=== PATIENT | female | born 1970 | race Caucasian/White ===

== ENCOUNTER 2016-06-28 16:42 | Emergency (ER) | payer MEDICARE ==
[~2016-06-28] VITALS: Ht 162.6 cm; Wt 55.0 kg
[2016-06-28 16:42] VITALS: Ht 162.6 cm; Wt 55.0 kg
[~2016-06-28 16:42] MED LIST: AMIT50TA3 PO; ASPI81TA2 PO; FERR-67 PO; LAMO100T12 PO; LEVE500T26 PO; LORA10TA7 PO
--- NOTE | 2016-06-28 16:42 | NUR ---
ROOM PATIENT ARRIVES TO ROOM VIA EMS CART
--- OUTSIDE RECORDS SUMMARY | 2016-06-28 16:47 | XMS REPORT | Continuity of Care Document ---
Author Author [facility] Organization [facility] Address Unknown Phone Unavailable Care Team Providers Care Bead Wire Insulator Name Role Phone OkyeniJustin davila Primary Care Physician [phone] Source Comments Some departments are not documenting in the electronic medical record. If you do not see the information that you expected, contact Release of Information in the Health Information Management department at [phone] for further assistance in locating additional records.[facility] Active Allergies and Adverse Reactions Allergen Noted Date Severity Reactions Comments Amitriptyline 12/29/2010 RASH Amoxicillin 07/26/2003 Medium Allergy recorded in SMS: Amoxicillin~Reactions: HIVES Current Medications Prescription Sig. Disp. Refills Start End Date Status Date Sumatriptan-Naproxen Take by mouth. Take 1 10 Tab 3 12/08/19 Active (TREXIMET) 85-500 mg PO tablet at start of 11 Tab migraine; if no relief, take 2nd tablet in 2 hours. Max of 2 tablets/24 hrs and 10 tablets/month hydrOXYzine (ATARAX) 50 Take 1 Tab by mouth at 30 Tab 5 12/28/19 Active mg PO tablet bedtime as needed 11 (Insomnia or anxiety). ibuprofen (MOTRIN) 200 mg Take 400 mg by mouth Active PO tablet twice daily as needed. buPROPion SR Take 1 Tab by mouth twice 60 Tab 2 12/30/19 Active (WELLBUTRIN-SR) 150 mg PO daily. 11 tablet Psyllium Husk (METAMUCIL) Take 1 Cap by mouth Active 0.52 g Cap daily. omeprazole (PRILOSEC) 10 Take 10 mg by mouth Active mg capsule daily. ASPIRIN/ACETAMINOPHEN/CAF Take 1 Tab by mouth every Active FEINE (EXCEDRIN MIGRAINE Mo, We & Fr as needed. PO) Active Problems Problem Noted Date Osteopenia 01/22/2011 Overview: DE XA bone scan 11/2010 shows osteopenia; rec another scan in 2 years: Risk factors: Premature ovarian failure, smoker Current T-score AP Spine L1-L3 -1.8 Hip Neck LT -1.3 Hip Neck RT -1.2 Hip Total Mean -1.2 A bone density should be repeated in 2 years since the risk for fracture is moderate and the DEXA is abnormal and DEXA trend is unknown FRAX* Score for this patient is: Major Osteoporotic Fracture Risk in next 10 years: 2.2 % Hip Fracture Risk in next 10 years: 0.2 % Treatment Guidelines: National Osteoporosis Foundation The guidelines published by the National Osteoporosis Foundation recommend: Assure patient is getting adequate calcium 1200-1500mg and vitamin D 400-800 and is getting weight bearing exercise. L ast Assessment & Plan: 1. Patient to take 1500ca/800 vit d per day 2. Walk 30 minutes per day 3. Stop smoking 4. Repeat DEXA scan in 2 years Smoking 01/03/2011 Overview: Has tried nicotine patches and nicotine gum without success prior to 2010 L ast Assessment & Plan: 1. Patient has been able to cut down to 2-3 cigarettes per day on 1/2 dose of bupropion per day Rash 12/16/2010 Last Assessment & Plan: - rash along chin that developed same time Elavil started, also with dry mouth and chest discomfort - will take her off Elavil - continue Treximet for now - appointment with Dr. 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 Will call patient with DEXA scan results when they are in Chronic migraine without aura 12/12/2010 Overview: 11/2010 >15 headache days per month with Treximet rescue medication; patient cannot tolerate amitriptyline due to side effects 12/30/09 CT w/o contrast: FINDINGS: There is no acute intracranial hemorrhage. There is no midline shift or mass effect. The basal cisterns are patent. There are no extra-axial fluid collections. The ventricles and sulci are within normal limits for age. The patton-white interfaces are maintained. The visualized portions of the perinasal sinuses and mastoid air cells are clear. No calvarial lesions are identified. Impression: CT HEAD W/O CONTRASTIMPRESSION: UNREMARKABLE NONCONTRAST CT OF THE HEAD. L ast Assessment & Plan: 1. Continue current regimen as patient has tried and failed amitriptyline and cannot tolerate propanolol due to blood pressures Elevated liver function tests 12/12/2010 Overview: Periodic mild elevation of liver function tests; 12/2010 wnl --> 25/28/119; most likely related to tylenol use for headaches 09/2010 --> 43/75/144 03/24/2010 --> 23/28/110 (after patient told to stop taking tylenol) 03/05/2010 --> 97/161/150 Negative for hep c in 2003 L ast Assessment & Plan: 1. Recheck in 3 months (03/2011); check tylenol and ETOH level if elevated 2. Will check complete hepatitis panel at next office visit Healthcare maintenance 12/10/2010 Overview: Pap smear: Patient with cryotherapy in 2003; pap smear result leading to cryotherapy not on file; stenotic cervix 2009 pap smear normal (no transformation zone)/ 2010 pap smear normal (with transformation zone) 2010 g/c, chl negative 12/2010 219/262/43/124; No CHD; 2 RF (smoking and post-menop); Frsc=2%; LDL goal <130; statin if > 160 11/2010 Dexa scan shows osteopenia Last Assessment & Plan: 1. Discussed TLC for management of LDL and triglycerides 2. Recheck in 3 months; will recommend fish oil if triglycerides remain elevated. Abdominal pain 09/12/2010 Overview: Patient with chronic RLQ pain upon deep penetration and on bimanual exam since 2003 Normal uterus and adnexa on 09/10/10 CT Diarrhea in adult patient 09/12/2010 Overview: 09/10/10 CT abd/pelvis NO EVIDENCE OF APPENDICITIS. SUGGESTION OF MILD MURAL THICKENING OF THE COLON WITH MUCOSAL ENHANCEMENT. THIS MAY BE DUE TO NONDISTENTION OF THE COLON, HOWEVER, MILD INFECTIOUS OR INFLAMMATORY COLITIS MAY HAVE THIS APPEARANCE. CORRELATION WITH SYMPTOMS AND LAB WORKUP IS RECOMMENDED. Last Assessment & Plan: 1. Will postpone colonoscopy at this time unless patient has another episode of diarrhea/acute abdominal pain (patient pref) Resolved Problems Problem Noted Date Resolved Date Headache(784.0) 12/10/2010 12/12/2010 Overview: 12/30/09 CT w/o contrast: FINDINGS: There is no acute intracranial hemorrhage. There is no midline shift or mass effect. The basal cisterns are patent. There are no extra-axial fluid collections. The ventricles and sulci are within normal limits for age. The patton-white interfaces are maintained. The visualized portions of the perinasal sinuses and mastoid air cells are clear. No calvarial lesions are identified. Impression: CT HEAD W/O CONTRASTIMPRESSION: UNREMARKABLE NONCONTRAST CT OF THE HEAD. Immunizations Name Dates Previously Given Next Due FLU VACCINE >3YO 02/03/2011 Social History Tobacco Use Types Packs/Day Years Used Date Current Every Day Smoker Cigarettes 0.1 22 Smokeless Tobacco: Never Used Alcohol Use Drinks/Week oz/Week Comments No Quit drinking after seeing a relative of complications of alcoholism/liver disease. Last Filed Vital Signs Vital Sign Reading Time Taken Blood Pressure 100/76 02/03/2011 1:28 PM CDT Pulse 98 02/03/2011 1:28 PM CDT Temperature 36.6 C (97.9 F) 02/03/2011 1:28 PM CDT Respiratory Rate 20 02/03/2011 1:28 PM CDT Height 1.575 m (5' 2") 02/03/2011 1:28 PM CDT Weight 60.328 kg (133 lb) 02/03/2011 1:28 PM CDT Body Mass Index 24.32 02/03/2011 1:28 PM CDT Oxygen Saturation 97% 09/06/2008 3:58 AM CDT Plan of Care Health Maintenance Due Date Last Done Comments Pertussis Vaccine 1982 Tetanus Vaccine 01/03/1988 Breast Cancer Screening 2011 Physical (Comprehensive) 12/14/2011 12/13/2010 Exam Cervical Cancer Screening 12/13/2013 12/13/2010, 12/07/2010 Influenza Vaccine 12/02/2016 02/03/2011 Results from Last 3 Months Not on file
--- OUTSIDE RECORDS SUMMARY | 2016-06-28 16:47 | XMS REPORT | Referral Summary ---
Author Author [facility] Organization [facility] Address Unknown Phone Unavailable Care Team Providers Care Ict Security Specialist Name Role Phone David Abdi Primary Care Physician [phone] Encounter VC Date(s): 04/08/16 - 04/08/16 [facility] [address] [place] [id number] Discharge Disposition: 01-Home or Self Care Attending Physician: Esperanza Abdi DO Admitting Physician: Esperanza Abdi DO Vital Signs Most recent to 1 oldest [Reference Range]: Temperature Tympanic 36.7 degC [36.6-38.1 degC] (04/08/16 10:01 AM) Peripheral Pulse 84 bpm Rate [60-100 bpm] (04/08/16 10:01 AM) Blood Pressure 100/70 mmHg [90-140/60-90 mmHg] (04/08/16 10:01 AM) SpO2 98 % (04/08/16 10:01 AM) Problem List No data available for this section Allergies, Adverse Reactions, Alerts Substance Reaction Severity Status No Known Allergies Active Medications amitriptyline 50 mg oral tablet 50 mg 1 tabs, Oral, Bedtime (once a day), # 90 tabs, 0 Refill(s), Pharmacy: [facility], 1 tabs Oral Bedtime (once a day) Start Date: 04/08/16 Status: Ordered aspirin 81 mg oral tablet 81 mg 1 tabs, Oral, Daily, # 30 tabs, 0 Refill(s) Start Date: 04/08/16 Status: Ordered Feosol 325 mg (65 mg elemental iron) oral tablet 325 mg 1 tabs, Oral, Daily, 0 Refill(s) Start Date: 04/08/16 Status: Ordered lamoTRIgine 100 mg oral tablet See Instructions, tabs one half tab Oral BID, 0 Refill(s) Start Date: 04/08/16 Status: Ordered levETIRAcetam 500 mg oral tablet 500 mg 1 tabs, Oral, Daily, 0 Refill(s) Start Date: 04/08/16 Status: Ordered loratadine 10 mg oral tablet 10 mg 1 tabs, Oral, Daily, # 30 tabs, 0 Refill(s) Start Date: 04/08/16 Status: Ordered Results No data available for this section Immunizations No data available for this section Procedures No data available for this section Social History Social History Type Response Smoking Status Current every day smoker; Type: Cigarettes; Tobacco use per day: Between 1/4 pack and 1/2 pack; Date Last Use: 5-7 a day Assessment and Plan No data available for this section
--- OUTSIDE RECORDS SUMMARY | 2016-06-28 16:47 | XMS REPORT | Continuity of Care Document ---
Author Author [facility] Organization [facility] Address Unknown Phone Unavailable Support Name Relationship Address Phone AKUA WHITE MD Caregiver [address] [place] [address] [place] [address] SEAN SALAZAR Next Of Kin [address] [place] [address] Insurance Providers Payer Name Policy Number Subscriber Name [facility] [id number] [place], [place] 18 Self Problems Medical Problems Problem Onset Date Status UTI (urinary tract infection) Unknown Active Medications Medication Dose Route Sig Days/Qty Instructions Order Date Discontinued Date Status Amitriptyline HCl 1 Tab PO DAILY 04/20/14 Active [Imitrex] 04/20/14 Active Ciprofloxacin 500 Mg PO EVERY 12 HOURS 7 Days 04/20/14 Active Phenazopyridine HCl 200 Mg PO THREE TIMES A DAY 2 Days Take 1 tab, by mouth, 3 times a day AFTER meals. 04/20/14 Active Social History Social History Problem Response Recorded Date/Time Hx Alcohol Use No 04/20/2014 3:30pm Query Response Start Date Stop Date Smoking Status Current every day smoker Hospital Discharge Instructions No hospital discharge instructions. Plan of Care No plan of care. Functional Status Query Response Date Recorded Physical Hygiene Self April 20, 2014 3:30pm Disabilities Visual April 20, 2014 3:30pm Devices Used Glasses April 20, 2014 3:30pm Dressing Self April 20, 2014 3:30pm Ambulation Self April 20, 2014 3:30pm Diet Self April 20, 2014 3:30pm Mental Status Alert April 20, 2014 4:44pm Disabilities Visual April 20, 2014 3:30pm Devices Used Glasses April 20, 2014 3:30pm Physical Hygiene Self April 20, 2014 3:30pm Dressing Self April 20, 2014 3:30pm Ambulation Self April 20, 2014 3:30pm Diet Self April 20, 2014 3:30pm Allergies, Adverse Reactions, Alerts Allergen Type Severity Reaction Status Last Updated Penicillin Allergy Unknown Active 04/20/14 Immunizations Name Given Type Hx Influenza Vaccination Y JAN 22, 2014 Historical Hx Influenza Vaccination Y JAN 22, 2014 Historical Vital Signs Acute Vital Signs Vital Response Date/Time Temperature (Fahrenheit) 98.1 deg F (96.8 - 99.1) Temperature (Calculated Celsius) 36.94276 degrees C (36.0 - 37.3) Pulse Rate (adult) 94 bpm (60 - 100) Respiratory Rate 16 breaths/min (10 - 20) O2 Sat by Pulse Oximetry 96 % (90 - 100) Blood Pressure 124/82 mm Hg Height 5 ft 3 in Weight 119 lb Body Mass Index 21.0 kg/m^2 Results Test Source Date Result Interp. Ref. Range Comments Urine Bacteria April 20, 2014 3:45pm 2+ H - Has specimen been collected/obtained? Y Urine Bilirubin April 20, 2014 3:45pm Negative - Has specimen been collected/obtained? Y Urine Blood April 20, 2014 3:45pm Negative - Has specimen been collected/obtained? Y Urine Collection Type April 20, 2014 3:45pm Voided-not cc-midstr - Has specimen been collected/obtained? Y Urine Color April 20, 2014 3:45pm Yellow - Has specimen been collected/obtained? Y Urine Culture Indicated April 20, 2014 3:45pm Cult reflexed &setup - Has specimen been collected/obtained? Y Urine Glucose (UA) April 20, 2014 3:45pm Negative - Has specimen been collected/obtained? Y Urine Ketones April 20, 2014 3:45pm Negative - Has specimen been collected/obtained? Y Urine Leukocyte Esterase April 20, 2014 3:45pm Trace H - Has specimen been collected/obtained? Y Urine Nitrite April 20, 2014 3:45pm Positive H - Has specimen been collected/obtained? Y Urine Protein April 20, 2014 3:45pm Negative - Has specimen been collected/obtained? Y Urine RBC April 20, 2014 3:45pm 0-1 /HPF - Has specimen been collected/obtained? Y Urine Specific [place] April 20, 2014 3:45pm >=1.030 H - Has specimen been collected/obtained? Y Urine Squamous Epithelial Cells April 20, 2014 3:45pm >50 - Has specimen been collected/obtained? Y Urine Turbidity April 20, 2014 3:45pm Sl cloudy - Has specimen been collected/obtained? Y Urine Urobilinogen April 20, 2014 3:45pm 0.2 EU/DL - Has specimen been collected/obtained? Y Urine WBC April 20, 2014 3:45pm 5-10 /HPF H - Has specimen been collected/obtained? Y Urine pH April 20, 2014 3:45pm 5.5 - Has specimen been collected/ obtained? Y Procedures No known history of procedures. Encounters Encounter Location Date/Time Departed Emergency Room [facility] 04/20/14 3:21pm Recent Diagnosis
--- OUTSIDE RECORDS SUMMARY | 2016-06-28 16:47 | XMS REPORT | Continuity of Care Document ---
Author Author [facility] Organization [facility] Address Unknown Phone Unavailable Care Team Providers Care Slime Plant Operator Name Role Phone SILVESTRE CYR MD Primary Care Physician [phone] Insurance Providers Guarantor DianaGloria saldivar Address [address] [place] [address] Email DENIED 04-21-16 Payer [employer] Policy Number [id number] Subscriber's Name Gloria Bishop Relationship 19 Self Advance Directives Directive Response Recorded Date/Time Advanced Directives Type None 04/21/16 3:20pm Chief Complaint and Reason for Visit Chief Complaint Nausea,Vomiting,Diarrhea Reason for Visit Gastroenteritis Cholelithiasis Problems Active Problems Medical Problem Onset Date Status Migraine Unknown Acute UTI (urinary tract infection) Unknown Acute Past Problems Medical Problem Onset Date Cholelithiasis Unknown Gastroenteritis Unknown Headache Unknown Headache Unknown Seizure Unknown Medications Current Home Medications Medication Dose Units Route Directions Days Qty Instructions Start Date Amitriptyline Hcl 50 Mg Tablet 50 Mg Oral Bedtime 04/21/16 Aspirin 81 Mg Tab.chew 81 Mg Oral Daily 09/16/15 Ferrous Sulfate (Iron Supplement) 325 Mg Tablet 325 Mg Oral Bedtime 08/01/15 Lamotrigine 100 Mg Tablet 100 Mg Oral Bedtime 04/21/16 Levetiracetam 500 Mg Tablet 500 Mg Oral Daily 04/21/16 Loratadine 10 Mg Tablet 10 Mg Oral Bedtime 08/01/15 Past Home Medications Medication Directions Ordered Status Ciprofloxacin (Cipro) 500 Mg/5 Ml Funmilayo.mc.rec, 500 Mg Oral Every 12 Hours Discontinued Phenazopyridine Hcl (Pyridium) 200 Mg Tablet, 200 Mg Oral Three Times A Day 04/20/14 Discontinued Social History Social History Problem Response Recorded Date/Time Onset Date Status Hx Substance Use No 04/21/2016 3:20pm Not Applicable Not Applicable Hx Alcohol Use No 04/21/2016 3:20pm Not Applicable Not Applicable Tobacco Usage none 08/01/2015 3:22pm Not Applicable Not Applicable Query Response Start Date Stop Date Smoking Status Current every day smoker Hospital Discharge Instructions No hospital discharge instructions. Plan of Care Discharge Date 04/21/16 7:44pm Disposition 01 DISCHARGED HOME, SELF-CARE Condition at Discharge Improved Instructions/Education Provided DI for Gallstones DI for Viral Gastroenteritis -- Adult Prescriptions See Medication Section Referrals [facility] Address: [address] [place] [address] [phone] Note: Additional Instructions/Education 1. Follow up with your primary doctor if symptoms persist. 2. Follow up with your doctor for further evaluation if necessary for gallstones. Care Plan and Goals Physician Care Plan Problem: Gastroenteritis Goal: Follow up with primary care provider Instructions: Take medications and follow care plan as discussed/written Functional Status No functional status results. Allergies, Adverse Reactions, Alerts Allergen Type Severity Reaction Status Last Updated Penicillin Allergy Unknown Active 04/21/16 Immunizations Query Response on File Recorded Date/Time Hx Influenza Vaccination Y JAN 22, 2014 04/20/14 3:30pm Hx Influenza Vaccination Y JAN 22, 2014 04/20/14 3:30pm Influenza Vaccine Hx 2015 04/21/16 3:20pm Vital Signs Acute Vital Signs Vital Response Date/Time Temperature (Fahrenheit) 98.3 deg F (96.8 - 99.1) 04/21/2016 7:44pm Temperature (Calculated Celsius) 36.95767 degrees C (36.0 - 37.3) 04/21/2016 7:44pm Pulse Rate (adult) 78 bpm (60 - 100) 04/21/2016 7:44pm Respiratory Rate 18 breaths/min (10 - 20) 04/21/2016 7:44pm O2 Sat by Pulse Oximetry 98 % (90 - 100) 04/21/2016 7:44pm Blood Pressure 122/76 mm Hg 04/21/2016 7:44pm Height (Feet) 5 feet 04/21/2016 3:20pm Height (Inches) 5.00 inches 04/21/2016 3:20pm Weight (Kilograms) 55.400 kg 04/21/2016 3:20pm Body Mass Index (BMI) 20.0 04/21/2016 3:20pm Results Laboratory Results Test Name Result Units Flags Reference Collection Date/Time Result Date/ Time Comments Urine Collection Type CLEANCATCH-MIDSTREAM 01/26/2016 2:33pm 2015 2:46pm Lamotrigine (Lamictal) Level 1.3 mcg/mL L 01/26/2016 2:33pm 2015 4:21pm Reference Range: 2.5 - 15.0 ADDITIONAL INFORMATION This test was developed and its performance characteristics determined by [facility] in a manner consistent with CLIA requirements. This test has not been cleared or approved by the U.S. Food and Drug Administration. Test Performed by: [place] [address] Hydroelectric Plant Mechanical Engineer: Eris Suero II, M.D., Ph.D. Lamotrigine performed at [facility], [address] [place] [address] Hydroelectric Plant Mechanical Engineer Nimo Savage MD White Blood Count 6.0 T/MM3 4.5-11.0 04/21/2016 5:09pm 04/21/2016 5: 16pm Red Blood Count 4.50 M/MM3 4.00-5.20 04/21/2016 5:09pm 04/21/2016 5: 16pm Hemoglobin 13.8 GM/DL 12-16 04/21/2016 5:09pm 04/21/2016 5:16pm Hematocrit 41.3 % 36-46 04/21/2016 5:09pm 04/21/2016 5:16pm Mean Corpuscular Volume 91.8 UM3 80-100 04/21/2016 5:09pm 04/21/2016 5: 16pm Mean Corpuscular Hemoglobin 30.7 UUG 26-34 04/21/2016 5:09pm 2016 5:16pm Mean Corpuscular Hemoglobin Concent 33.4 GM/DL 31-37 04/21/2016 5:0904/21/2016 5:16pm RDW Standard Deviation 44.6 FL 36.9-50.2 04/21/2016 5:0904/21/2016 5 :16pm Platelet Count 156 T/MM3 130-400 04/21/2016 5:0904/21/2016 5:16pm Mean Platelet Volume 11.2 UM3 9.4-12.4 04/21/2016 5:0904/21/2016 5: 16pm Neutrophils (%) (Auto) 44.8 % 33-66 04/21/2016 5:0904/21/2016 5: 16pm Lymphocytes (%) (Auto) 46.5 % H 23-45 04/21/2016 5:0904/21/2016 5: 16pm Monocytes (%) (Auto) 5.5 % 0-9.0 04/21/2016 5:04/21/2016 5:16pm Eosinophils (%) (Auto) 2.5 % 0-4 04/21/2016 5:0904/21/2016 5:16pm Basophils (%) (Auto) 0.7 % 0-2 04/21/2016 5:0904/21/2016 5:16pm Immature Granulocyte % (Auto) 0.0 % 0.0-0.5 04/21/2016 5:092016 5:16pm Absolute Neutrophils (auto) 2.7 T/MM3 1.8-7.7 04/21/2016 5:092016 5:16pm Absolute Lymphocytes (auto) 2.8 T/MM3 1-4.8 04/21/2016 5:2016 5:16pm Absolute Monocytes (auto) 0.3 T/MM3 0-0.8 04/21/2016 5:0904/21/2016 5:16pm Absolute Eosinophils (auto) 0.2 T/MM3 0-0.5 04/21/2016 5:2016 5:16pm Absolute Basophils (auto) 0.0 T/MM3 0-0.2 04/21/2016 5:09pm 04/21/2016 5:16pm Absolute Immature Granulocyte (auto 0.00 T/MM3 0.00-0.03 04/21/2016 5: 0904/21/2016 5:16pm Icterus Index < 2 0-7 04/21/2016 5:09pm 04/21/2016 5:35pm Chemistry Specimen Hemolysis < 15 0-25 04/21/2016 5:09pm 04/21/2016 5 :35pm 0-25: Specimen Exhibited No Hemolysis. Turbidity < 20 0-20 04/21/2016 5:09pm 04/21/2016 5:35pm Sodium Level 144 MEQ/L 134-144 04/21/2016 5:09pm 04/21/2016 5:35pm Potassium Level 4.2 MEQ/L 3.6-5 04/21/2016 5:09pm 04/21/2016 5:35pm Chloride Level 107 MEQ/L 98-107 04/21/2016 5:09pm 04/21/2016 5:35pm Carbon Dioxide Level 25 MEQ/L 22-30 04/21/2016 5:09pm 04/21/2016 5: 35pm Anion Gap 12 MEQ/L 5-15 04/21/2016 5:09pm 04/21/2016 5:35pm Blood Urea Nitrogen 21.0 MG/DL H 7-17 04/21/2016 5:09pm 04/21/2016 5: 35pm Creatinine 0.9 MG/DL 0.7-1.2 04/21/2016 5:09pm 04/21/2016 5:35pm BUN/Creatinine Ratio 23 RATIO 6-26 04/21/2016 5:09pm 04/21/2016 5:35pm Glomerular Filtration Rate Calc 68 04/21/2016 5:09pm 04/21/2016 5: 35pm Glucose Level 99 MG/DL 65-110 04/21/2016 5:0904/21/2016 5:35pm Calculated Osmolality 280 MOSM/KG 261-280 04/21/2016 5:09pm 04/21/2016 5:35pm Calcium Level 9.3 MG/DL 8.4-10.2 04/21/2016 5:09pm 04/21/2016 5:35pm Total Bilirubin 0.30 MG/DL 0.20-1.30 04/21/2016 5:09pm 04/21/2016 5: 35pm Alkaline Phosphatase 108 U/L 38-126 04/21/2016 5:09pm 04/21/2016 5: 35pm Total Protein 7.2 G/DL 6.3-8.2 04/21/2016 5:09pm 04/21/2016 5:35pm Albumin 4.3 G/DL 3.5-5.0 04/21/2016 5:09pm 04/21/2016 5:35pm Globulin 2.9 G/DL 2.4-3.6 04/21/2016 5:09pm 04/21/2016 5:35pm Albumin/Globulin Ratio 1.5 RATIO 1.1-2.2 04/21/2016 5:09pm 04/21/2016 5 :35pm Aspartate Amino Transf (AST/SGOT) 23 U/L 14-36 04/21/2016 5:09pm 2016 5:35pm Alanine Aminotransferase (ALT/SGPT) 32 U/L 9-52 04/21/2016 5:09pm 04/21 5:35pm Urine Color YELLOW YELLOW 04/21/2016 5:29pm 04/21/2016 5:41pm Urine Turbidity CLEAR CLEAR 04/21/2016 5:29pm 04/21/2016 5:41pm Urine Specific [place] 1.020 1.015-1.025 04/21/2016 5:29pm 2016 5:41pm Urine pH 6.0 5.0-8.0 04/21/2016 5:29pm 04/21/2016 5:41pm Urine Leukocyte Esterase NEGATIVE NEGATIVE 04/21/2016 5:29pm 2016 5:41pm Urine Nitrite NEGATIVE NEGATIVE 04/21/2016 5:pm 04/21/2016 5:41pm Urine Protein NEGATIVE NEGATIVE 04/21/2016 5:pm 04/21/2016 5:41pm Urine Glucose (UA) NEGATIVE NEGATIVE 04/21/2016 5:29pm 04/21/2016 5: 41pm Urine Ketones NEGATIVE NEGATIVE 04/21/2016 5:29pm 04/21/2016 5:41pm Urine Urobilinogen 1.0 EU/DL NORMAL 04/21/2016 5:29pm 04/21/2016 5: 41pm Urine Bilirubin NEGATIVE NEGATIVE 04/21/2016 5:29pm 04/21/2016 5: 41pm Urine Blood NEGATIVE NEGATIVE 04/21/2016 5:29pm 04/21/2016 5:41pm Urinalysis Comment MICROSCOPIC NOT IND. 04/21/2016 5:29pm 2016 5:41pm Procedures Procedure Status Date Provider(s) Routine venipuncture Completed 01/26/16 Ct head/brain w/o dye Completed 01/26/16 Comprehen metabolic panel Completed 01/26/16 Drug screen favian lamotrigine Completed 01/26/16 Urinalysis auto w/o scope Completed 01/26/16 Urine test Completed 01/26/16 Complete cbc w/auto diff wbc Completed 01/26/16 Emergency dept visit Completed 01/26/16 DRUG TESTS, PRESUMPTIVE, ANY NUMBER OF PROCEDURES Completed 01/26/16 Encounters Encounter Location Arrival/Admit Date Discharge/Depart Date Attending Provider Departed Emergency Room [facility] 04/21/16 3:06pm 04/21/16 7: 44pm EDITH ARIZA MD Departed Emergency Room [facility] 01/26/16 1:27pm 01/26/16 4: 10pm ASHER PEREZ DO Recent Diagnosis
--- OUTSIDE RECORDS SUMMARY | 2016-06-28 16:47 | XMS REPORT | Continuity of Care Document ---
Author Author [facility] Address Unknown Phone Unavailable Allergies Medications Problems Procedures Results Encounters ACCT No. Visit Date/Time Discharge Status Pt. Type Provider Facility Loc./Unit Complaint [id number] 02/03/2016 13:41:58 02/03/2016 13:41:59 DIS Outpatient [id number] 02/03/2016 13:41:56 02/03/2016 13:41:57 DIS Outpatient [id number] 02/03/2016 13:41:54 02/03/2016 13:41:54 DIS Outpatient [id number] 02/03/2016 13:24:41 02/03/2016 13:24:42 DIS Outpatient [id number] 02/03/2016 13:24:34 02/03/2016 13:24:35 DIS Outpatient [id number] 04/20/2016 11:07:40 DIS Outpatient [id number] 04/20/2016 11:07:01 DIS Outpatient [id number] 04/20/2016 11:03:22 DIS Outpatient
--- OUTSIDE RECORDS SUMMARY | 2016-06-28 16:48 | XMS REPORT | Referral Summary ---
Author Author [facility] Organization [facility] Address Unknown Phone Unavailable Care Team Providers Care Pusher Operator Name Role Phone David Abdi Primary Care Physician [phone] Encounter VC Date(s): 05/24/16 - 05/24/16 [facility], Family [address] [place] [address] Discharge Disposition: 01-Home or Self Care Attending Physician: Esteban Lombardo APRN Admitting Physician: Esteban Lombardo APRN Vital Signs Most recent to 1 oldest [Reference Range]: Temperature Tympanic 36.8 degC [36.6-38.1 degC] (05/24/16 2:51 PM) Peripheral Pulse 88 bpm Rate [60-100 bpm] (05/24/16 2:51 PM) Respiratory Rate 16 br/min [14-20 br/min] (05/24/16 2:51 PM) Blood Pressure 100/70 mmHg [90-140/60-90 mmHg] (05/24/16 2:51 PM) SpO2 98 % (05/24/16 2:51 PM) Problem List Condition Effective Dates Status Health Status Informant Chronic Active migraine(Confirmed) Seizure Active disorder(Confirmed) Allergies, Adverse Reactions, Alerts Substance Reaction Severity Status No Known Allergies Active penicillin1 Active 1Hives in childhood Medications amitriptyline 50 mg oral tablet 50 mg 1 tabs, Oral, Bedtime (once a day), # 90 tabs, 0 Refill(s), Pharmacy: [facility], 1 tabs Oral Bedtime (once a day) Start Date: 04/08/16 Status: Ordered aspirin 81 mg oral tablet 81 mg 1 tabs, Oral, Daily, # 30 tabs, 0 Refill(s) Start Date: 04/08/16 Status: Ordered Bactrim DS 800 mg-160 mg oral tablet 1 tabs, Oral, BID, X 7 days, # 14 tabs, 0 Refill(s), Pharmacy: [facility] #[id number] Start Date: 05/24/16 Stop Date: 05/31/16 Status: Ordered Feosol 325 mg (65 mg elemental iron) oral tablet 325 mg 1 tabs, Oral, Daily, 0 Refill(s) Start Date: 04/08/16 Status: Ordered Flonase 50 mcg/inh nasal spray 1 sprays, Nasal, BID, # 16 g, 0 Refill(s) Start Date: 05/06/16 Status: Ordered LaMICtal 25 mg oral tablet 25 mg 1 tabs, Oral, Daily, # 30 tabs, 1 Refill(s), Pharmacy: [facility] # [id number], 1 tabs Oral Daily Start Date: 05/18/16 Status: Ordered levETIRAcetam 500 mg oral tablet 500 mg 1 tabs, Oral, BID, # 30 tabs, 0 Refill(s), other reason (Rx) Start Date: 05/06/16 Status: Ordered loratadine 10 mg oral tablet 10 mg 1 tabs, Oral, Daily, # 30 tabs, 0 Refill(s) Start Date: 04/08/16 Status: Ordered polyethylene glycol 3350 oral powder for reconstitution 17 g, Oral, Daily, Constipation, dissolve in water before taking, # 255 g, 0 Refill(s) Start Date: 05/06/16 Status: Ordered Results Urinalysis Most recent to 1 oldest [Reference Range]: UA Color Dk Yellow (05/24/16 2:48 PM) UA Appear Sl Cloudy (05/24/16 2:48 PM) UA pH [5.0-8.0] 5.5 (05/24/16 2:48 PM) UA Leuk Est Negative [Negative] (05/24/16 2:48 PM) UA Nitrite Negative [Negative] (05/24/16 2:48 PM) UA Protein Trace [Negative] *ABN* (05/24/16 2:48 PM) UA Glucose Negative [Negative] (05/24/16 2:48 PM) UA Ketones Negative [Negative] (05/24/16 2:48 PM) UA Urobilinogen 0.2 mg/dL [<=1.0 mg/dL] (05/24/16 2:48 PM) UA Bili [Negative] Negative (05/24/16 2:48 PM) UA Blood [Negative] Negative (05/24/16 2:48 PM) UA Spec Grav >=1.030 [1.003-1.030] (05/24/16 2:48 PM) Type Cl Catch (05/24/16 2:48 PM) Immunizations No data available for this section Procedures Procedure Date Related Diagnosis Body Site following previous delivery Social History Social History Type Response Smoking Status Current every day smoker; Type: Cigarettes; Tobacco use per day: Between 1/4 pack and 1/2 pack; Date Last Use: 5-7 a day Assessment and Plan No data available for this section
--- OUTSIDE RECORDS SUMMARY | 2016-06-28 16:49 | XMS REPORT | Referral Summary ---
Author Author [facility] Organization [facility] Address Unknown Phone Unavailable Care Team Providers Care Visitor Information Assistant Name Role Phone David Abdi Primary Care Physician [phone] Encounter Date(s): 04/22/16 - 04/22/16 [facility], Family [address] [place] [address]- Discharge Diagnosis: Seizure disorder Discharge Diagnosis: Polypharmacy Discharge Diagnosis: Diarrhea Discharge Diagnosis: Chronic migraine Discharge Diagnosis: Cholelithiases Discharge Disposition: 01-Home or Self Care Attending Physician: Mir Villa MD Admitting Physician: Mir Villa MD Vital Signs Most recent to 1 oldest [Reference Range]: Temperature Tympanic 36.8 degC [36.6-38.1 degC] (04/22/16 1:08 PM) Blood Pressure 120/70 mmHg [90-140/60-90 mmHg] (04/22/16 1:08 PM) Problem List Condition Effective Dates Status Health Status Informant Chronic Active migraine(Confirmed) Seizure Active disorder(Confirmed) Allergies, Adverse Reactions, Alerts Substance Reaction Severity Status No Known Allergies Active penicillin1 Active 1Hives in childhood Medications amitriptyline 50 mg oral tablet 50 mg 1 tabs, Oral, Bedtime (once a day), # 90 tabs, 0 Refill(s), Pharmacy: [facility], 1 tabs Oral Bedtime [...] Use: 5-7 a day Assessment and Plan Extracted from: Title: ER Follow Up Author: Mir Villa MD Date: 04/22/16 Impression and Plan Diagnosis Cholelithiases (WQI21-FC K80.20, Discharge, Medical). Chronic migraine (ERX68-QO G43.709, Discharge, Medical). Diarrhea (ELJ69-JW R19.7, Discharge, Medical). Polypharmacy (GST32-CZ Z79.899, Discharge, Medical). Seizure disorder (LSI44-NQ G40.909, Discharge, Medical).
--- OUTSIDE RECORDS SUMMARY | 2016-06-28 16:49 | XMS REPORT | Referral Summary ---
Author Author [facility] Organization [facility] Address Unknown Phone Unavailable Care Team Providers Care Toll Line Mechanic Name Role Phone David Abdi Primary Care Physician [phone] Encounter VC Date(s): 05/18/16 - 05/18/16 [facility], Family [address] [place] [address] Discharge Diagnosis: Chronic migraine Discharge Disposition: 01-Home or Self Care Attending Physician: Esperanza Abdi DO Admitting Physician: Esperanza Abdi DO Vital Signs Most recent to 1 oldest [Reference Range]: Temperature Tympanic 36.9 degC [36.6-38.1 degC] (05/18/16 12:59 PM) Peripheral Pulse 88 bpm Rate [60-100 bpm] (05/18/16 12:59 PM) Respiratory Rate 16 br/min [14-20 br/min] (05/18/16 12:59 PM) Blood Pressure 110/60 mmHg [90-140/60-90 mmHg] (05/18/16 12:59 PM) SpO2 98 % (05/18/16 12:59 PM) Problem List Condition Effective Dates Status Health Status Informant Chronic Active migraine(Confirmed) Seizure Active disorder(Confirmed) Allergies, Adverse Reactions, Alerts Substance Reaction Severity Status No Known Allergies Active penicillin1 Active 1Hives in childhood Medications amitriptyline 50 mg oral tablet 50 mg 1 tabs, Oral, Bedtime (once a day), # 90 tabs, 0 Refill(s), Pharmacy: [facility], 1 tabs Oral Bedtime [...] Daily, # 30 tabs, 1 Refill(s), Pharmacy: [facility] # [id number], 1 tabs Oral Daily Start Date: 05/18/16 [...] Refill(s) Start Date: 05/06/16 Status: Ordered Results No data available for this section Immunizations No data available for this section Procedures Procedure Date Related Diagnosis Body Site following previous delivery Social History Social History Type Response Smoking Status Current every day smoker; Type: Cigarettes; Tobacco use per day: Between 1/4 pack and 1/2 pack; Date Last Use: 5-7 a day Assessment and Plan Extracted from: Title: Office Visit Note Author: Esperanza Abdi DO Date: 05/18/16 Assessment/Plan Chronic migraine I will go ahead and start the patient on 25 mg of Lamictal. I've advised her that neurology needs to manage this from hereas this is not a medication that I manage for migraines or seizures. She is to keep appointment with neurologist. Patient voiced understanding. Ordered: Office Visit Level 3 Est [id number]
--- NOTE | 2016-06-28 16:50 | NUR ---
DOCTOR DR. GRACIA IN TO SEE PATIENT
--- OUTSIDE RECORDS SUMMARY | 2016-06-28 16:57 | XMS REPORT | Continuity of Care Document ---
Author Author [facility] Organization [facility] Address Unknown Phone Unavailable Care Team Providers Care Hotel Custodian Name Role Phone OkyeniJustin davila Primary Care Physician [phone] Source Comments Some departments are not documenting in the electronic medical record. If you do not see the information that you expected, contact Release of Information in the Health Information Management department at [phone] for further assistance in locating additional records.[facility] Active Allergies and Adverse [...] estrogen replacement due to smoking status FSH 12/20093836=085, normal TSH 12/2010 --> negative for adrenal [...]
--- OUTSIDE RECORDS SUMMARY | 2016-06-28 16:58 | XMS REPORT | Continuity of Care Document ---
Author Author [facility] Address Unknown Phone Unavailable Allergies Medications Problems Procedures Results Encounters ACCT No. Visit Date/Time Discharge Status Pt. Type Provider Facility Loc./Unit Complaint [id number] 02/03/2016 13:41:58 02/03/2016 13:41:59 DIS Outpatient [id number] 02/03/2016 13:41:56 02/03/2016 13:41:57 DIS Outpatient [id number] 02/03/2016 13:41:54 02/03/2016 13:41:54 DIS Outpatient [id number] 02/03/2016 13:24:41 02/03/2016 13:24:42 DIS Outpatient [id number] 02/03/2016 13:24:34 02/03/2016 13:24:35 DIS Outpatient [id number] 04/20/2016 11:07:40 DIS Outpatient [id number] 04/20/2016 11:07:01 DIS Outpatient [id number] 04/20/2016 11:03:22 DIS Outpatient
--- OUTSIDE RECORDS SUMMARY | 2016-06-28 16:58 | XMS REPORT | Continuity of Care Document ---
Author Author [facility] Organization [facility] Address Unknown Phone Unavailable Support Name Relationship Address Phone AKUA WHITE MD Caregiver [address] [place] [address] [place] [address] SEAN SALAZAR Next Of Kin [address] [place] [address] Insurance Providers Payer Name Policy Number Subscriber Name [facility] [id number] [place], [place] 18 Self Problems Medical Problems Problem [...] F (96.8 - 99.1) Temperature (Calculated Celsius) 36.62282 degrees C (36.0 - 37.3) Pulse Rate [...] Has specimen been collected/obtained? Y Urine Specific [place] April 20, 2014 3:45pm >=1.030 H - [...] Encounters Encounter Location Date/Time Departed Emergency Room [facility] 04/20/14 3:21pm Recent Diagnosis
[2016-06-28] MEDS ORDERED: KETOROLAC 30mg/ml INJECTION IV ONE (17:00)
[2016-06-28] MEDS ORDERED: ONDANSETRON 4mg/2ml INJECTION IV ONE (17:00)
[2016-06-28] MEDS ORDERED: NORMAL SALINE 1,000 ML IV ONE (17:00)
[2016-06-28] MEDS ORDERED: TOPI50TA57 PO (17:01)
[2016-06-28] MEDS ORDERED: LAMO25TA8 PO (17:01)
--- NOTE | 2016-06-28 17:03 | ERPDOC ---
Departure Disposition Decision Date: Jun 28, 2016 Disposition Decision Time: 18:10 Disposition: 01 DISCHARGED HOME, SELF-CARE Impression Impression Impression: Primary Impression: Migraine Qualified Codes: G43.009 - Migraine without aura, not intractable, without status migrainosus Additional Impression: Hx of seizure disorder Severity: Moderate Condition: Stable Seen By: Physician only Referrals: SILVESTRE CYR MD (PCP) VANESSA GREENE DO (Family) Patient Instructions: Migraine Headache (ED) Problems/Meds/Labs Reviewed?: Yes Medications reviewed and manag: Yes Additional Instructions: Home to rest tonight. May take Benadryl two tablets if needed to help you relax and sleep the rest of the headache off. Follow up with your doctor tomorrow of not feeling better. The levels of your seizure meds with take a day or two to come back, but your doctor can review those and decide if they need to change your doses. Follow up care ordered?: Yes Mental Status: Alert, Oriented HPI - Headache General Chief Complaint: Nausea,Vomiting,Diarrhea Stated Complaint: SEIZURES Time Seen by Provider: 16:44 Source: patient, RN notes reviewed, old records Exam Limitations: no limitations, other (pt has limited insight into her medical conditions) HPI - Headache Initial Comments This patient comes in via EMS complaining of feeling like she is going to have a seizure -- which consists of feeling shaky and nauseated. She has taken all of her anticonvulsants as ordered. She is not having any signs of infection such as fever, URI or UTI or gastroenteritis symptoms. She has not had any interruption in her daily routine such as amount of sleep, etc She thinks that he last seizure was before she was here last January. Upon further questioning , she has a "migraine" headache. This is one of her typical headaches and is in the middle of the occipital region, associated with some nausea and some photophobia. She is not sure what she gets when she has a migraine. Occurred At: home Onset: Gradual Pain Scale: Now & Worst: 10/10 Severity/Quality: throbbing Location: occipital Prior Headaches/Recent Trauma: chronic headaches Modifying Factors: medication, No: exposure to light Associated Symptoms: nausea/vomiting, other (shakiness) Hx of Similar Symptoms: Yes Allergies: Coded Allergies: Penicillins (Verified Allergy, Unknown, 06/28/16) Past History Past Medical History Cardiac: other Female: UTI Neurological: migraines, seizures Surgical History Reproductive/: Family History Family PMH: FOUND: CVA, diabetes Vaccines Hx Influenza Vaccination: Yes (JAN 22, 2014) Social History Does patient use chewing tobac: No Second Hand Exposure: No Substance Use Type: does not use Alcohol Intake: none Housing: house Service: No Occupational Hazard: No Record Review Pertinent history updated: Yes Review of Systems Constitutional Constitutional: appetite decrease, other (shaky), weakness, DENIES: chills, dizziness, fever Eyes General: photophobia, see HPI, DENIES: pain Lids/Accessories: DENIES: erythema Vision: DENIES: blurring ENMT Ears: DENIES: pain Hearing: DENIES: hearing loss Balance: DENIES: vertigo Sinuses: DENIES: congestion, rhinorrhea Mouth/Throat: DENIES: sore throat Teeth: DENIES: pain Cardiovascular Cardiac: DENIES: chest pain Rhythm/Rate: DENIES: palpitations Vascular: DENIES: pedal edema, unilateral swelling Pulmonary Respiratory: DENIES: cough, dyspnea, sputum GI Upper Abdomen: nausea, see HPI, DENIES: vomiting Lower Abdomen: DENIES: constipation, diarrhea General: DENIES: dysuria, hematuria Female: DENIES: vaginal discharge Musculoskeletal General: DENIES: joint pain, pain Integumentary Skin: DENIES: itching, rash Neurological General: headache, see HPI, DENIES: ataxia, blackouts, blindness, change in strength, dysarthria, dysesthesia, fainting, memory disturbances, numbness, paralysis/paresis, poor coordination, seizures, syncope, tingling, vertigo, weakness Comments no recent seizure activity, Psychiatric Psychiatric: DENIES: anxiety, depression Endocrine Endocrine: DENIES: heat/cold intolerance Hematologic/Lymphatic Hematologic/Lymphatic: DENIES: anemia, easy bruising Allergic/Immunological Allergic/Immunoligical: DENIES: hives All other Systems All Other Systems: Reviewed and Negative Physical Exam General General Nourishment: well nourished, well developed, appears stated age, no acute distress, adult Vitals and Pain First Documented Vital Signs Date Time Temp Pulse Resp B/P Pulse Ox O2 Delivery O2 Flow Rate FiO2 06/28/16 16:42 98.0 107 18 124/71 99 Room Air Weight: Kilograms: 55.000 Height (feet): 5 Height (inches): 4.00 Triage Pain Scale: Normal Exams: Head: Normocephalic w/o trauma Eyes: Pupils are PERRLA w/ EOMI, No scleral icterus, irritation, or foreign bodies noted ENMT: No facial trauma, nasal exudates, pharyngeal erythema, or exudates are noted Neck: Full range of motion, without adenopathy, JVD, bruits or thyromegaly Chest/Resp: Clear all andrews, with good airflow, and symmetry bilaterally CV: Regular rate and rhythm, without murmur or gallop, Pulses 2+ all extremities, capillary refill, <2 seconds all ext., no pedal edema noted Abdomen: Bowel sounds positive, soft, non-tender, non-distended, no hepatosplenomegaly, masses or bruits noted Lymphatic: No lymphadenopathy, or lymphedema noted Musculoskeletal: No tenderness, or deformity noted, good range of motion, all extremities Integumentary: No rashes, hives, or bruising noted, hair and nails, without abnormality Neurologic: Patient is alert, and oriented, cranial nerves, motor/sensory/ cerebellar, exams w/o gross deficits, to observation Psychiatric: Patient exhibits, appropriate attention, emotion and affect Neurologic (brief) Comments very mild intermittent shaking of extremities Differential Diagnoses Considering: Headache, Headache - Migraine, Headache - Tension/Muscle, Viral Syndrome, Other Progress Results/Orders Orders Procedure Category Date Status Time Iv Lock (Ed Only) EDM 06/28/16 Transmitted 16:55 Oxygen Administration EDM 06/28/16 Transmitted 16:55 Nothing By Mouth (Ed EDM 06/28/16 Transmitted Only) 16:55 Cbc W/Auto LAB 06/28/16 Complete Diff-Reflex Manual 16:55 Bmp - Basic Metabolic LAB 06/28/16 Complete Panel 16:55 Levetiracetam - LAB 06/28/16 In Process Keppra - Ams Lamotrigine - LAB 06/28/16 In Process Lamictal - Ams Normal Saline (Normal PHA 06/28/16 Complete Saline Iv) 17:00 Ondansetron Inj PHA 06/28/16 Complete (Zofran) 17:00 Ketorolac (Toradol) PHA 06/28/16 Complete 17:00 Orphenadrine (Norflex) PHA 06/28/16 Complete 17:15 Hydrocodone/Acetaminophen PHA 06/28/16 Complete ([place] 7.5/325 18:15 Lab Results Laboratory Tests Test 06/28/16 17:11 White Blood Count 8.5T/MM3 Red Blood Count 4.42M/MM3 Hemoglobin 13.3GM/DL Hematocrit 40.4% Mean Corpuscular Volume 91.4UM3 Mean Corpuscular Hemoglobin 30.1UUG Mean Corpuscular Hemoglobin Concent 32.9GM/DL RDW Standard Deviation 43.8FL Platelet Count 174T/MM3 Mean Platelet Volume 10.4UM3 Immature Granulocyte % (Auto) 0.1% Neutrophils (%) (Auto) 59.1% Lymphocytes (%) (Auto) 34.4% Monocytes (%) (Auto) 5.3% Eosinophils (%) (Auto) 0.7% Basophils (%) (Auto) 0.4% Absolute Immature Granulocyte (auto 0.01T/MM3 Absolute Neutrophils (auto) 5.0T/MM3 Absolute Lymphocytes (auto) 2.9T/MM3 Absolute Monocytes (auto) 0.5T/MM3 Absolute Eosinophils (auto) 0.1T/MM3 Absolute Basophils (auto) 0.0T/MM3 Turbidity < 20 Sodium Level 145MEQ/L Potassium Level 4.2MEQ/L Chloride Level 108MEQ/L Carbon Dioxide Level 27MEQ/L Anion Gap 10MEQ/L Blood Urea Nitrogen 19.0MG/DL Creatinine 0.8MG/DL Glomerular Filtration Rate Calc 78 BUN/Creatinine Ratio 24RATIO Glucose Level 107MG/DL Calculated Osmolality 281MOSM/KG Calcium Level 9.4MG/DL Icterus Index < 2 Chemistry Specimen Hemolysis < 15 Lamotrigine (Lamictal) Level Pending Levetiracetam (Keppra) Level Pending Medications Current ED Medications Sodium Chloride (Normal Saline IV) 1,000 ml @ 0 mls/hr Q0M ONCE IV Last administered on 06/28/16 17:22; Start 06/28/16 at 17:00; Stop 06/28/16 at 17:01 ; Status DC Ondansetron HCl (Zofran) 4 mg O ONCE IV Last administered on 06/28/16 17:41; Start 06/28/16 at 17:00; Stop 06/28/16 at 17:01; Status DC Ketorolac Tromethamine (Toradol) 30 mg O ONCE IV Last administered on 17:43; Start 06/28/16 at 17:00; Stop 06/28/16 at 17:01; Status DC Orphenadrine Citrate (Norflex) 60 mg O ONCE IV Last administered on 06/28/16 17:45; Start 06/28/16 at 17:15; Stop 06/28/16 at 17:16; Status DC Acetaminophen/ Hydrocodone Bitart ([place] 7.5/325) 1 tab O ONCE PO Last administered on 06/28/16 18:22; Start 06/28/16 at 18:15; Stop 06/28/16 at 18:16 ; Status DC Progress Progress Patient given Toradol and Norflex with improvement in shaky feeling, but still having headache. Zofran for nausea and IV fluids. Labs show mild increase in sodium, chloride and BUN consistent with mild dehydration. [place] given for pain , patient improved prior to discharge. with pain down to 3 from 01/10. DERRICK GRACIA MD Jun 28, 2016 17:03
[2016-06-28] MEDS ORDERED: ORPHENADRINE 60mg/2ml INJECTION IV ONE (17:15)
[2016-06-28 17:16] LABS: BASOPHILS % (AUTO) 0.4 % (0-2); EOSINOPHILS # (AUTO) 0.1 T/MM3 (0-0.5); EOSINOPHILS % (AUTO) 0.7 % (0-4); HCT - HEMATOCRIT 40.4 % (36-46); HGB - HEMOGLOBIN 13.3 GM/DL (12-16); IMMATURE GRANULOCYTE # (AUTO) 0.01 T/MM3 (0.00-0.03); IMMATURE GRANULOCYTE % (AUTO) 0.1 % (0.0-0.5); LYMPHOCYTES # (AUTO) 2.9 T/MM3 (1-4.8); LYMPHOCYTES % (AUTO) 34.4 % (23-45); MEAN CORPUSCULAR HGB 30.1 UUG (26-34); MEAN CORPUSCULAR HGB CONC(MCHC 32.9 GM/DL (31-37); MEAN CORPUSCULAR VOLUME 91.4 UM3 (80-100); MEAN PLATELET VOLUME 10.4 UM3 (9.4-12.4); MONOCYTES # (AUTO) 0.5 T/MM3 (0-0.8); MONOCYTES % (AUTO) 5.3 % (0-9.0); NEUTROPHILS % (AUTO) 59.1 % (33-66); RED BLOOD COUNT 4.42 M/MM3 (4.00-5.20); WBC - WHITE BLOOD COUNT 8.5 T/MM3 (4.5-11.0)
[2016-06-28 17:25] LABS: ANION GAP 10 MEQ/L (5-15); BUN/CREATININE RATIO 24 RATIO (6-26); CALCIUM 9.4 MG/DL (8.4-10.2); CHLORIDE 108 MEQ/L (98-107); CO2 - CARBON DIOXIDE 27 MEQ/L (22-30); CREATININE 0.8 MG/DL (0.7-1.2); GLOMERULAR FILTRATION RATE 78; GLUCOSE 107 MG/DL (65-110); POTASSIUM 4.2 MEQ/L (3.6-5); SODIUM 145 MEQ/L (134-144)
[2016-06-28 18:28] VITALS: BP 120/67; PULSE 90; RESP 16; TEMP 98; O2SAT 96
--- NOTE | 2016-06-28 18:28 | NUR ---
DEPART VERBAL AND WRITTEN DISCHARGE INSTRUCTIONS GIVEN AND UNDERSTOOD. LEFT AMUBULATORY FROM ER.
== END 2016-06-28 18:28 | disposition home or self-care (01) ==
LOC: ED 16:42
DX: G43.009 Migraine without aura, not intractable, without status migrainosus (principal); Z87.898 Personal history of other specified conditions
CPT/HCPCS: 36415; 80048; 80175; 80177; 85025; 96361; 96374; 96375; 99284; A9270; J1885; J2360; J2405; J7030

== ENCOUNTER 2016-08-07 02:26 | Emergency (ER) | payer MEDICARE ==
[~2016-08-07] VITALS: Ht 161.3 cm; Wt 53.0 kg
[~2016-08-07 02:26] MED LIST changes: -LAMO100T12 PO; +LAMO25TA8 PO; +TOPI50TA25 PO
[2016-08-07 02:29] VITALS: Ht 161.3 cm; Wt 53.0 kg
--- OUTSIDE RECORDS SUMMARY | 2016-08-07 02:32 | XMS REPORT | Continuity of Care Document ---
Author Author [facility] Organization [facility] Address Unknown Phone Unavailable Care Team Providers Care Fuel Distribution System Operator Name Role Phone OkyeniJustin davila Primary Care Physician [phone] Source Comments Some departments are not documenting in the electronic medical record. If you do not see the information that you expected, contact Release of Information in the Health Information Management department at [phone] for further assistance in locating additional records.[facility] Active Allergies and Adverse Reactions Allergen Noted [...] estrogen replacement due to smoking status FSH 12/20095980=435, normal TSH 12/2010 --> negative for adrenal [...] Resolved Problems Problem Noted Date Resolved Date Headache 12/10/2010 12/12/2010 Overview: 12/30/09 CT w/o contrast: [...]
--- OUTSIDE RECORDS SUMMARY | 2016-08-07 02:33 | XMS REPORT | Continuity of Care Document ---
Author Author [facility] Organization [facility] Address Unknown Phone Unavailable Support Name Relationship Address Phone AKUA WHITE MD Caregiver [address] [place] [address] [place] [address] SEAN SALAZAR Next Of Kin [address] [place] [address] Insurance Providers Payer Name Policy Number Subscriber Name Relationship [facility] [id number] [place], [place] 19 Self Problems Medical Problems Problem [...] F (96.8 - 99.1) Temperature (Calculated Celsius) 36.16598 degrees C (36.0 - 37.3) Pulse Rate [...] Has specimen been collected/obtained? Y Urine Specific [place] April 20, 2014 3:45pm >=1.030 H - [...] Encounters Encounter Location Date/Time Departed Emergency Room [facility] 04/20/14 3:21pm Recent Diagnosis
--- OUTSIDE RECORDS SUMMARY | 2016-08-07 02:33 | XMS REPORT | Continuity of Care Document ---
Author Author [facility] Address Unknown Phone Unavailable Allergies Medications Problems Procedures Results Encounters ACCT No. Visit Date/Time Discharge Status Pt. Type Provider Facility Loc./Unit Complaint [id number] 02/03/2016 13:41:58 02/03/2016 13:41:59 DIS Outpatient [id number] 02/03/2016 13:41:56 02/03/2016 13:41:57 DIS Outpatient [id number] 02/03/2016 13:41:54 02/03/2016 13:41:54 DIS Outpatient [id number] 02/03/2016 13:24:41 02/03/2016 13:24:42 DIS Outpatient [id number] 02/03/2016 13:24:34 02/03/2016 13:24:35 DIS Outpatient [id number] 04/20/2016 11:07:40 DIS Outpatient [id number] 04/20/2016 11:07:01 DIS Outpatient [id number] 04/20/2016 11:03:22 DIS Outpatient
--- OUTSIDE RECORDS SUMMARY | 2016-08-07 02:35 | XMS REPORT | Continuity of Care Document ---
Author Author [facility] Organization [facility] Address Unknown Phone Unavailable Care Team Providers Care Geriatric Case Manager Name Role Phone SILVESTRE CYR MD Primary Care Physician [phone] Insurance Providers Guarantor DianaGloria saldivar Address [address] [place] [address] Email DENIED 06-28-16 Payer [employer] Policy Number [id number] Subscriber's Name Gloria Bishop Relationship 19 Self Advance Directives Directive Response Recorded Date/Time Advanced Directives Type None 06/28/16 4:42pm Chief Complaint and Reason for Visit Chief Complaint Nausea,Vomiting,Diarrhea Reason for Visit Migraine [id number] Problems Active Problems Medical Problem Onset Date Status UTI (urinary tract infection) Unknown Acute Past Problems Medical Problem Onset Date Cholelithiasis Unknown Gastroenteritis Unknown Headache Unknown Headache Unknown Hx of seizure disorder Unknown Migraine Unknown Seizure Unknown Medications Current Home Medications Medication Dose Units Route Directions Days Qty Instructions Start Date Amitriptyline Hcl 50 Mg Tablet 50 Mg Oral Bedtime 04/21/16 Aspirin 81 Mg Tab.chew 81 Mg Oral Daily 09/16/15 Ferrous Sulfate (Iron Supplement) 325 Mg Tablet 325 Mg Oral Bedtime 08/01/15 Lamotrigine 25 Mg Tablet 25 Mg Oral Bedtime 06/28/16 Levetiracetam 500 Mg Tablet 750 Mg Oral Twice A Day 04/21/16 Loratadine 10 Mg Tablet 10 Mg Oral Bedtime 08/01/15 Topiramate 50 Mg Tablet 75 Mg Oral Bedtime 06/28/16 Past Home Medications Medication Directions Ordered Status Ciprofloxacin (Cipro) 500 Mg/[address] [facility]..rec, 500 Mg Oral Every 12 Hours Discontinued Phenazopyridine Hcl (Pyridium) 200 Mg Tablet, 200 Mg Oral Three Times A Day 04/20/14 Discontinued Social History Social History Problem Response Recorded Date/Time Onset Date Status Hx Substance Use No 06/28/2016 6:00pm Not Applicable Not Applicable Hx Alcohol Use No 06/28/2016 6:00pm Not Applicable Not Applicable Tobacco Usage none 08/01/2015 3:22pm Not Applicable Not Applicable Query Response Start Date Stop Date Smoking Status Current every day smoker Hospital Discharge Instructions No hospital discharge instructions. Plan of Care Discharge Date 06/28/16 6:28pm Disposition 01 DISCHARGED HOME, SELF-CARE Condition at Discharge Stable Instructions/Education Provided Migraine Headache (ED) Prescriptions See Medication Section Referrals SILVESTRE CYR MD Address: [address] [place] [address] [place] [phone] VANESSA GREENE DO Additional Instructions/Education Home to rest tonight. May take Benadryl two tablets if needed to help you relax and sleep the rest of the headache off. Follow up with your doctor tomorrow of not feeling better. The levels of your seizure meds with take a day or two to come back, but your doctor can review those and decide if they need to change your doses. Care Plan and Goals Physician Care Plan Problem:migraine headache, seizure disorder Goal: Follow up with primary care provider Instructions: Take medications and follow care plan as discussed/written Functional Status No functional status results. Allergies, Adverse Reactions, Alerts Allergen Type Severity Reaction Status Last Updated Penicillin Allergy Unknown Active 06/28/16 Immunizations Query Response on File Recorded Date/Time Hx Influenza Vaccination Y JAN 22, 2014 04/20/14 3:30pm Hx Influenza Vaccination Y JAN 22, 2014 04/20/14 3:30pm Influenza Vaccine Hx 201406/28/16 6:00pm Vital Signs Acute Vital Signs Vital Response Date/Time Temperature (Fahrenheit) 98.0 deg F (96.8 - 99.1) 06/28/2016 6:28pm Temperature (Calculated Celsius) 36.81539 degrees C (36.0 - 37.3) 06/28/2016 6:28pm Pulse Rate (adult) 90 bpm (60 - 100) 06/28/2016 6:28pm Respiratory Rate 16 breaths/min (10 - 20) 06/28/2016 6:28pm O2 Sat by Pulse Oximetry 96 % (90 - 100) 06/28/2016 6:28pm Blood Pressure 120/67 mm Hg 06/28/2016 6:28pm Height (Feet) 5 feet 06/28/2016 4:42pm Height (Inches) 4.00 inches 06/28/2016 4:42pm Weight (Kilograms) 55.000 kg 06/28/2016 4:42pm Body Mass Index (BMI) 20.0 06/28/2016 4:42pm Results Laboratory Results Test Name Result Units Flags Reference Collection Date/Time Result Date/ Time Comments Total Bilirubin 0.30 MG/DL 0.20-1.30 04/21/2016 5:09pm [...] 04/21/2016 5:41pm Urine Turbidity CLEAR CLEAR 04/21/2016 5:pm 04/21/2016 5:41pm Urine Specific [place] 1.020 1.015-1.025 04/21/2016 5:29pm 2016 5:41pm Urine pH 6.0 5.0-8.0 04/21/2016 5:29pm 04/21/2016 5:41pm Urine Leukocyte Esterase NEGATIVE NEGATIVE 04/21/2016 5:29pm 2016 5:41pm Urine Nitrite NEGATIVE NEGATIVE 04/21/2016 5:pm 04/21/2016 5:41pm Urine Protein NEGATIVE NEGATIVE 04/21/2016 5:pm 04/21/2016 5:41pm Urine Glucose (UA) NEGATIVE NEGATIVE 04/21/2016 5:pm 04/21/2016 5: 41pm Urine Ketones NEGATIVE NEGATIVE 04/21/2016 5:pm 04/21/2016 5:41pm Urine Urobilinogen 1.0 EU/DL NORMAL 04/21/2016 5:29pm 04/21/2016 5: 41pm Urine Bilirubin NEGATIVE NEGATIVE 04/21/2016 5:pm 04/21/2016 5: 41pm Urine Blood NEGATIVE NEGATIVE 04/21/2016 5:pm 04/21/2016 5:41pm Urinalysis Comment MICROSCOPIC NOT IND. 04/21/2016 5:pm 2016 5:41pm White Blood Count 8.5 T/MM3 4.5-11.0 06/28/2016 5:11pm 06/28/2016 5: 16pm Red Blood Count 4.42 M/MM3 4.00-5.20 06/28/2016 5:11pm 06/28/2016 5: 16pm Hemoglobin 13.3 GM/DL 12-16 06/28/2016 5:06/28/2016 5:16pm Hematocrit 40.4 % 36-46 06/28/2016 5:06/28/2016 5:16pm Mean Corpuscular Volume 91.4 UM3 80-100 06/28/2016 5:06/28/2016 5: 16pm Mean Corpuscular Hemoglobin 30.1 UUG 26-34 06/28/2016 5:2016 5:16pm Mean Corpuscular Hemoglobin Concent 32.9 GM/DL 31-37 06/28/2016 5:1106/28/2016 5:16pm RDW Standard Deviation 43.8 FL 36.9-50.2 06/28/2016 5:11pm 06/28/2016 5 :16pm Platelet Count 174 T/MM3 130-400 06/28/2016 5:1106/28/2016 5:16pm Mean Platelet Volume 10.4 UM3 9.4-12.4 06/28/2016 5:1106/28/2016 5: 16pm Neutrophils (%) (Auto) 59.1 % 33-66 06/28/2016 5:1106/28/2016 5: 16pm Lymphocytes (%) (Auto) 34.4 % 23-45 06/28/2016 5:1106/28/2016 5: 16pm Monocytes (%) (Auto) 5.3 % 0-9.0 06/28/2016 5:pm 06/28/2016 5:16pm Eosinophils (%) (Auto) 0.7 % 0-4 06/28/2016 5:1106/28/2016 5:16pm Basophils (%) (Auto) 0.4 % 0-2 06/28/2016 5:06/28/2016 5:16pm Immature Granulocyte % (Auto) 0.1 % 0.0-0.5 06/28/2016 5:2016 5:16pm Absolute Neutrophils (auto) 5.0 T/MM3 1.8-7.7 06/28/2016 5:2016 5:16pm Absolute Lymphocytes (auto) 2.9 T/MM3 1-4.8 06/28/2016 5:2016 5:16pm Absolute Monocytes (auto) 0.5 T/MM3 0-0.8 06/28/2016 5:06/28/2016 5:16pm Absolute Eosinophils (auto) 0.1 T/MM3 0-0.5 06/28/2016 5:2016 5:16pm Absolute Basophils (auto) 0.0 T/MM3 0-0.2 06/28/2016 5:06/28/2016 5:16pm Absolute Immature Granulocyte (auto 0.01 T/MM3 0.00-0.03 06/28/2016 5: 06/28/2016 5:16pm Icterus Index < 2 0-7 06/28/2016 5:06/28/2016 5:25pm Chemistry Specimen Hemolysis < 15 0-25 06/28/2016 5:06/28/2016 5 :25pm 0-25: Specimen Exhibited No Hemolysis. Turbidity < 20 0-20 06/28/2016 5:11pm 06/28/2016 5:25pm Sodium Level 145 MEQ/L H 134-144 06/28/2016 5:11pm 06/28/2016 5:25pm Potassium Level 4.2 MEQ/L 3.6-5 06/28/2016 5:11pm 06/28/2016 5:25pm Chloride Level 108 MEQ/L H 98-107 06/28/2016 5:11pm 06/28/2016 5:25pm Carbon Dioxide Level 27 MEQ/L 22-30 06/28/2016 5:11pm 06/28/2016 5: 25pm Anion Gap 10 MEQ/L 5-15 06/28/2016 5:11pm 06/28/2016 5:25pm Blood Urea Nitrogen 19.0 MG/DL H 7-17 06/28/2016 5:11pm 06/28/2016 5: 25pm Creatinine 0.8 MG/DL 0.7-1.2 06/28/2016 5:11pm 06/28/2016 5:25pm BUN/Creatinine Ratio 24 RATIO 6-26 06/28/2016 5:11pm 06/28/2016 5:25pm Glomerular Filtration Rate Calc 78 06/28/2016 5:11pm 06/28/2016 5: 25pm Glucose Level 107 MG/DL 65-110 06/28/2016 5:11pm 06/28/2016 5:25pm Calculated Osmolality 281 MOSM/KG H 261-280 06/28/2016 5:11pm 2016 5:25pm Calcium Level 9.4 MG/DL 8.4-10.2 06/28/2016 5:11pm 06/28/2016 5:25pm Procedures Procedure Status Date Provider(s) Ct abd & pelv w/contrast Completed 04/21/16 Comprehen metabolic panel Completed 04/21/16 Urinalysis auto w/o scope Completed 04/21/16 Complete cbc w/auto diff wbc Completed 04/21/16 Hydrate iv infusion add-on Completed 04/21/16 Ther/proph/diag inj iv push Completed 04/21/16 Tx/pro/dx inj new drug addon Completed 04/21/16 Emergency dept visit Completed 04/21/16 732749"INJECTION, ONDANSETRON HYDROCHLORIDE, PER 1 MG" Completed 04/21/16 [id number]"INFUSION, NORMAL SALINE SOLUTION , 1000 CC" Completed 04/21/16 [id number]"INFUSION, NORMAL SALINE SOLUTION , 250 CC" Completed 04/21/16 [id number]"LOW OSMOLAR CONTRAST MATERIAL, 300-399 MG/ML IODINE C Completed Encounters Encounter Location Arrival/Admit Date Discharge/Depart Date Attending Provider Departed Emergency Room [facility] 06/28/16 4:42pm 06/28/16 6: 28pm DERRICK GRACIA MD Departed Emergency Room [facility] 04/21/16 3:06pm 04/21/16 7: 44pm USAMA PEÑALOZA DO Recent Diagnosis
[2016-08-07 02:51] LABS: BASOPHILS # (AUTO) 0.1 T/MM3 (0-0.2); BASOPHILS % (AUTO) 0.8 % (0-2); EOSINOPHILS # (AUTO) 0.1 T/MM3 (0-0.5); EOSINOPHILS % (AUTO) 1.8 % (0-4); HCT - HEMATOCRIT 39.8 % (36-46); HGB - HEMOGLOBIN 13.3 GM/DL (12-16); IMMATURE GRANULOCYTE # (AUTO) 0.01 T/MM3 (0.00-0.03); IMMATURE GRANULOCYTE % (AUTO) 0.1 % (0.0-0.5); LYMPHOCYTES # (AUTO) 4.3 T/MM3 (1-4.8); MEAN CORPUSCULAR HGB 30.6 UUG (26-34); MEAN CORPUSCULAR HGB CONC(MCHC 33.4 GM/DL (31-37); MEAN CORPUSCULAR VOLUME 91.7 UM3 (80-100); MEAN PLATELET VOLUME 11.6 UM3 (9.4-12.4); MONOCYTES # (AUTO) 0.5 T/MM3 (0-0.8); MONOCYTES % (AUTO) 6.3 % (0-9.0); RED BLOOD COUNT 4.34 M/MM3 (4.00-5.20)
[2016-08-07 03:00] LABS: ALBUMIN 4.6 G/DL (3.5-5.0); ALBUMIN/GLOBULIN RATIO 1.8 RATIO (1.1-2.2); ALKALINE PHOSPHATASE 88 U/L (38-126); ALT (SGPT) 36 U/L (9-52); ANION GAP 13 MEQ/L (5-15); AST (SGOT) 21 U/L (14-36); BUN/CREATININE RATIO 24 RATIO (6-26); CALCIUM 9.6 MG/DL (8.4-10.2); CHLORIDE 110 MEQ/L (98-107); CO2 - CARBON DIOXIDE 25 MEQ/L (22-30); CREATININE 0.9 MG/DL (0.7-1.2); GLOMERULAR FILTRATION RATE 68; GLUCOSE 109 MG/DL (65-110); POTASSIUM 4.2 MEQ/L (3.6-5); SODIUM 148 MEQ/L (134-144); TOTAL PROTEIN 7.2 G/DL (6.3-8.2)
[2016-08-07] MEDS ORDERED: NORMAL SALINE 1,000 ML IV ONE (03:15)
--- NOTE | 2016-08-07 03:16 | ERPDOC ---
Departure Disposition Decision Date: August 07, 2016 Disposition Decision Time: 04:21 Disposition: 01 DISCHARGED HOME, SELF-CARE Impression Impression Impression: Primary Impression: Atypical chest pain Severity: Moderate Condition: Improved Seen By: Physician only Referrals: SILVESTRE CYR MD (PCP) VANESSA GREENE DO (Family) 1 Day Patient Instructions: Chest Wall Pain (ED), Noncardiac Chest Pain (ED) Problems/Meds/Labs Reviewed?: Yes Medications reviewed and manag: Yes Follow up care ordered?: Yes Mental Status: Alert, Oriented HPI - General Medical General Chief Complaint: Chest Pain Stated Complaint: LEFT ARM PAIN Time Seen by Provider: 02:40 Source: patient, EMS Exam Limitations: no limitations HPI - General Medical Initial Comments 46 F presents to the ED with the chief complaint of chest pain. Patient noted onset of symptoms 3 days ago. She denies any trauma or injury. Patient states that her symptoms have been persistent in nature since onset without change in nature or characteristic. Patient notes that the pain is easily reproducible with movement of the thorax or left upper extremity. Pain is moderate. No radiation. Pain is sharp. Patient denies any history of coronary artery disease or risk factors for coronary artery disease. She was at home when her symptoms began. No other complaints or associated symptoms. She denies homicidal/suicidal ideation or plan. She denies any self injury or self-harm. Occurred At: home Onset: Constant Allergies: Coded Allergies: Penicillins (Verified Allergy, Unknown, 06/28/16) Past History Past Medical History Cardiac: other Female: UTI Neurological: migraines, seizures Surgical History Reproductive/: Family History Family PMH: FOUND: CVA, diabetes Vaccines Hx Influenza Vaccination: Yes (JAN 22, 2014) Social History Smoking Status: Never smoker Does patient use chewing tobac: No Second Hand Exposure: No Substance Use Type: does not use Alcohol Intake: none Housing: house Service: No Occupational Hazard: No Review of Systems Constitutional Constitutional: DENIES: chills, fever Eyes General: DENIES: erythema, exudate Lids/Accessories: DENIES: erythema, swelling Vision: DENIES: acuity, blurring ENMT Ears: DENIES: drainage, erythema Hearing: DENIES: hearing loss Balance: DENIES: ataxia, falling to one side Sinuses: DENIES: congestion, pain Nose: DENIES: nosebleeds, pain Mouth/Throat: DENIES: painful swallowing, sore throat Teeth: DENIES: pain Jaw: DENIES: pain Cardiovascular Cardiac: chest pain, DENIES: dyspnea on exertion Rhythm/Rate: DENIES: irregular beat, palpitations Vascular: DENIES: pedal edema, unilateral swelling Pulmonary Respiratory: DENIES: cough, dyspnea, pleuritic chest pain, sputum GI Upper Abdomen: DENIES: nausea, pain, vomiting Lower Abdomen: DENIES: diarrhea, pain General: DENIES: dysuria, frequency Musculoskeletal General: tenderness, DENIES: joint pain Integumentary Skin: DENIES: itching, rash Neurological General: DENIES: change in strength, headache, numbness, weakness Psychiatric Psychiatric: DENIES: emotional instability, suicidal ideation/attempt Endocrine Endocrine: DENIES: polydipsia, polyphagia Hematologic/Lymphatic Hematologic/Lymphatic: DENIES: frequent nosebleeds, lymphadenopathy Allergic/Immunological Allergic/Immunoligical: DENIES: allergic reactions, hives Physical Exam General General Nourishment: well nourished, well developed, appears stated age, no acute distress, adult General Body Habitus: well groomed Vitals and Pain First Documented Vital Signs Date Time Temp Pulse Resp B/P Pulse Ox O2 Delivery O2 Flow Rate FiO2 08/07/16 02:29 98.0 56 18 135/87 100 Room Air Weight: Kilograms: 53.000 Height (feet): 5 Height (inches): 3.50 Triage Pain Scale: RN VS reviewed by Provider: Yes Normal Exams: Head: Normocephalic w/o trauma Eyes: Pupils are PERRLA w/ EOMI, No scleral icterus, irritation, or foreign bodies noted ENMT: No facial trauma, nasal exudates, pharyngeal erythema, or exudates are noted Dental: No fractured, loose, or missing teeth noted Neck: Full range of motion, without adenopathy, JVD, bruits or thyromegaly Chest/Resp: Clear all andrews, with good airflow, and symmetry bilaterally CV: Regular rate and rhythm, without murmur or gallop, Pulses 2+ all extremities, capillary refill, <2 seconds all ext., no pedal edema noted Abdomen: Bowel sounds positive, soft, non-tender, non-distended, no hepatosplenomegaly, masses or bruits noted Lymphatic: No lymphadenopathy, or lymphedema noted Musculoskeletal: No tenderness, or deformity noted, good range of motion, all extremities Integumentary: No rashes, hives, or bruising noted, hair and nails, without abnormality Neurologic: Patient is alert, and oriented, cranial nerves, motor/sensory/ cerebellar, exams w/o gross deficits, to observation Psychiatric: Patient exhibits, appropriate attention, emotion and affect Musculoskeletal (brief) Comments Chest wall is tender to palpation with exact reproduction of pain. no crepitus. Differential Diagnoses Considering: Acute CA, Medication Effect, Metabolic, Other (Chest wall pain) Progress Results/Orders Orders Procedure Category Date Status Time Cbc W/Auto LAB 08/07/16 Complete Diff-Reflex Manual Cmp - Comprehensive LAB 08/07/16 Complete Metabolic Troponin I W LAB 08/07/16 Complete Hemolysis Index EKG EKG 08/07/16 Taken Chest 1 View RAD 08/07/16 Taken 02:58 Iv Lock (Ed Only) EDM 08/07/16 Transmitted 03:11 Normal Saline (Normal PHA 08/07/16 Complete Saline Iv) 03:15 D-Dimer LAB 08/07/16 Complete 03:31 Lab Results Laboratory Tests Test 08/07/16 00:00 White Blood Count 8.0T/MM3 Red Blood Count 4.34M/MM3 Hemoglobin 13.3GM/DL Hematocrit 39.8% Mean Corpuscular Volume 91.7UM3 Mean Corpuscular Hemoglobin 30.6UUG Mean Corpuscular Hemoglobin Concent 33.4GM/DL RDW Standard Deviation 47.2FL Platelet Count 169T/MM3 Mean Platelet Volume 11.6UM3 Immature Granulocyte % (Auto) 0.1% Neutrophils (%) (Auto) 37.0% Lymphocytes (%) (Auto) 54.0% Monocytes (%) (Auto) 6.3% Eosinophils (%) (Auto) 1.8% Basophils (%) (Auto) 0.8% Absolute Immature Granulocyte (auto 0.01T/MM3 Absolute Neutrophils (auto) 3.0T/MM3 Absolute Lymphocytes (auto) 4.3T/MM3 Absolute Monocytes (auto) 0.5T/MM3 Absolute Eosinophils (auto) 0.1T/MM3 Absolute Basophils (auto) 0.1T/MM3 D-Dimer < 150NG/ML Turbidity < 20 Sodium Level 148MEQ/L Potassium Level 4.2MEQ/L Chloride Level 110MEQ/L Carbon Dioxide Level 25MEQ/L Anion Gap 13MEQ/L Blood Urea Nitrogen 22.0MG/DL Creatinine 0.9MG/DL Glomerular Filtration Rate Calc 68 BUN/Creatinine Ratio 24RATIO Glucose Level 109MG/DL Calculated Osmolality 288MOSM/KG Calcium Level 9.6MG/DL Total Bilirubin 0.30MG/DL Icterus Index < 2 Aspartate Amino Transf (AST/SGOT) 21U/L Alanine Aminotransferase (ALT/SGPT) 36U/L Alkaline Phosphatase 88U/L Troponin I < 0.012ng/ml Total Protein 7.2G/DL Albumin 4.6G/DL Globulin 2.6G/DL Albumin/Globulin Ratio 1.8RATIO Chemistry Specimen Hemolysis < 15 Medications Current ED Medications Sodium Chloride (Normal Saline IV) 1,000 ml @ 999 mls/hr Q1H1M ONCE IV Last administered on 08/07/16t 03:29; Start 08/07/16 at 03:15; Stop 08/07/16 at 04:15; Status DC Progress Progress Labs / imaging were discussed in detail with the patient and family and questions are answered. Patient has had her discomfort for the past 3 days constantly which has been sufficient time for the troponin to rise if this was a cardiac process and the troponin is negative. She has a normal EKG without ischemic changes. She has a negative d-dimer. She has a negative chest x-ray. Patient's pain is easily reproducible with movement of the thorax or palpation. Patient declines offered analgesic pain medication. Patient has no risk factors for coronary artery disease. Patient is discharged home in improved condition. She is to follow up as instructed. She declines prescription for analgesic pain medication. She is instructed to continue using [id number] nonsteroidal anti-inflammatories as directed for pain control. Patient is in agreement with the current plan of management. Patient is to return to the emergency Department if her condition worsens or changes in any manner. Patient is in agreement with the current plan of management. EKG EKG : Rate: <60 Rhythm: sinus [place]: normal QRS: normal Intervals: normal ST/T: normal Interpreted by: signing physician Xray Xray : Xray: CXR Portable Interpretation: Normal, Interpreted by FADI Cerda DO August 07, 2016 03:16
[2016-08-07] MEDS ORDERED: MONT10TA25 PO (03:20)
[2016-08-07] MEDS ORDERED: TOPI25TA64 PO (03:20)
[2016-08-07] MEDS ORDERED: CIPR-212 PO (03:20)
[2016-08-07] MEDS ORDERED: BUPR150T3 PO (03:20)
[2016-08-07] MEDS ORDERED: LORA-610 PO (03:20)
[2016-08-07] MEDS ORDERED: LAMO100T12 PO (03:20)
--- OUTSIDE RECORDS SUMMARY | 2016-08-07 04:01 | XMS REPORT | Continuity of Care Document ---
Author Author [facility] Organization [facility] Address Unknown Phone Unavailable Care Team Providers Care Garment Supervisor Name Role Phone OkyeniJustin davila Primary Care Physician [phone] Source Comments Some departments are not documenting in the electronic medical record. If you do not see the information that you expected, contact Release of Information in the Health Information Management department at [phone] for further assistance in locating additional records.[facility] Active Allergies and Adverse Reactions Allergen [...] estrogen replacement due to smoking status FSH [id number], normal TSH 12/2010 --> negative for adrenal [...]
--- OUTSIDE RECORDS SUMMARY | 2016-08-07 04:02 | XMS REPORT | Continuity of Care Document ---
Author Author [facility] Address Unknown Phone Unavailable Allergies Medications Problems Procedures Results Encounters ACCT No. Visit Date/Time Discharge Status Pt. Type Provider Facility Loc./Unit Complaint [id number] 02/03/2016 13:41:58 02/03/2016 13:41:59 DIS Outpatient [id number] 02/03/2016 13:41:56 02/03/2016 13:41:57 DIS Outpatient [id number] 02/03/2016 13:41:54 02/03/2016 13:41:54 DIS Outpatient [id number] 02/03/2016 13:24:41 02/03/2016 13:24:42 DIS Outpatient [id number] 02/03/2016 13:24:34 02/03/2016 13:24:35 DIS Outpatient [id number] 04/20/2016 11:07:40 DIS Outpatient [id number] 04/20/2016 11:07:01 DIS Outpatient [id number] 04/20/2016 11:03:22 DIS Outpatient
--- OUTSIDE RECORDS SUMMARY | 2016-08-07 04:02 | XMS REPORT | Continuity of Care Document ---
Author Author [facility] Organization [facility] Address Unknown Phone Unavailable Support Name Relationship Address Phone AKUA WHITE MD Caregiver [address] [place] [address] [place] [id number] SEAN SALAZAR Next Of Kin [address] [place] [address] Insurance Providers Payer Name Policy Number Subscriber Name [id number] [place], [place] 18 Self Problems Medical Problems Problem [...] F (96.8 - 99.1) Temperature (Calculated Celsius) 36.33916 degrees C (36.0 - 37.3) Pulse Rate [...] Has specimen been collected/obtained? Y Urine Specific [place] April 20, 2014 3:45pm >=1.030 H - [...] Encounters Encounter Location Date/Time Departed Emergency Room [facility] 04/20/14 3:21pm Recent Diagnosis
[2016-08-07 04:47] VITALS: BP 139/76; PULSE 63; RESP 18; TEMP 98; O2SAT 99
--- NOTE | 2016-08-07 04:47 | NUR ---
DEPART PT GIVEN DI FOR NONCARDIAC CHEST PAIN, CHEST WALL PAIN, F/U. PT VERBALIZES UNDERSTANDING OF DI. QUESTIONS ASKED/ANSWERED - DENIES FURTHER QUESTIONS/NEEDS AT THIS TIME. PT DENIES NAUSEA AT THIS TIME AND STATES IMPROVEMENT IN PAIN (DOES NOT RATE AT THIS TIME). IV SITE REMOVED. PERSONAL BELONINGS AND MEDS GATHERED/WITH PT. PT AMBULATED/ESCORTED TO ED EXIT - GAIT STABLE, NO SIGN OF DISTRESS AT THIS TIME.
--- NOTE | 2016-08-07 07:56 | DI ---
Indication: ITS.REASON: Chest pain PROCEDURE: CHEST 1 VIEW: Encounter: Initial Comparison: None FINDINGS: The lungs are clear. There is no abnormal airspace opacity, pleural effusion or pneumothorax identified. The heart size, pulmonary vasculature and mediastinum are within normal limits. No significant skeletal abnormality is seen. IMPRESSION: No acute cardiopulmonary abnormality. .
== END 2016-08-07 04:47 | disposition home or self-care (01) ==
LOC: ED 02:26
DX: R07.89 Other chest pain (principal)
CPT/HCPCS: 71010; 80053; 84484; 85025; 85379; 93005; 96360; 99284; J7030